=== PATIENT | male | born 1955 | race Two or more races ===

== ENCOUNTER 2019-06-11 15:07 | Inpatient (IN) | payer OTHER ==
[~2019-06-11] VITALS: Ht 172.7 cm; Wt 77.1 kg
[2019-06-11] VITALS (12 sets, daily range): BP systolic 126–160; BP diastolic 57–125
[2019-06-11] MEDS ORDERED: NITROPRUSSIDE 50 MG in DEXT 5% WATER 250 ML IV SCH (16:11)
[2019-06-11] MEDS ORDERED: LEVETIRACETAM 1000MG/100ML 100 ML IV ONE (16:15)
[2019-06-11] MEDS ORDERED: DEXAMETHASONE 10 MG/ML VIAL IV ONE (16:15)
[2019-06-11 16:22] LABS: BASOPHILS % 0.8 % (0.0-2.0); CHLORIDE 100 mEq/L (98-107); EOSINOPHILS % 1.8 % (0.0-5.0); HEMATOCRIT. 46.6 % (42.0-52.0); HEMOGLOBIN. 16.3 g/dL (14.0-18.0); LYMPHOCYTES % 25.1 % (20.0-50.0); MEAN CORPUSCULAR HEMOGLOBIN 35.3 pg (28.0-32.0); MEAN CORPUSCULAR VOLUME 100.9 fL (80.0-94.0); MEAN PLATELET VOLUME 8.5 fl (7.4-10.4); MONOCYTES % 7.2 % (2.0-8.0); NEUTROPHILS % 65.1 % (40.0-76.0); PLATELET 265 x1000/uL (130-400); RED BLOOD CELL COUNT 4.62 mill/uL (4.7-6.1); RED CELL DISTRIBUTION WIDTH 12.5 % (11.6-14.6)
[2019-06-11 16:25] LABS: INR 0.9; PROTHROMBIN TIME 9.4 sec (9.6-11.0)
[2019-06-11 16:26] LABS: ETHANOL BLOOD < 10 mg/dL
[2019-06-11 16:29] LABS: LDL CHOLESTEROL 139 mg/dL (5-100)
[2019-06-11] MEDS ORDERED: DILTIAZEM HCL 5MG/ML 5ML VIAL IV ONE (16:30)
[2019-06-11] MEDS ORDERED: NICARDIPINE 50 MG in SODIUM CHLORIDE 0.9% 230 ML IV PRN (17:00)
[2019-06-11] MEDS ORDERED: NICARDIPINE 40MG/200ML PREMIX 200 ML IV SCH (17:15)
[2019-06-11] MEDS ORDERED: DEXTROSE 50% WATER 50ML SYRINGE IV PRN ×2 (17:30→21:09)
[2019-06-11] MEDS ORDERED: DEXT 5%/LACTATED RINGERS 1,000 ML IV SCH (17:45)
[2019-06-11] MEDS ORDERED: INSULIN LISPRO 100 UNITS/ML SUBCUT SCH (18:20)
[2019-06-11] MEDS ORDERED: BLOOD SUGAR DIAGNOSTIC STRIP TEST SCH (21:00)
[2019-06-11] MEDS: ATORVASTATIN CALCIUM 40MG TABLET PO SCH (21:00)
[2019-06-11] MEDS ORDERED: ONDANSETRON HCL 4MG/2ML INJ IV PRN (21:08)
[2019-06-11] MEDS ORDERED: DILTIAZEM HCL 5MG/ML 5ML VIAL IV PRN (21:08)
[2019-06-11] MEDS: BLOOD SUGAR DIAGNOSTIC STRIP TEST SCH (21:20)
[2019-06-11] MEDS ORDERED: NICARDIPINE 100 MG in SODIUM CHLORIDE 0.9% 60 ML IV PRN ×4 (21:30)
[2019-06-11] MEDS ORDERED: DILTIAZEM HCL 125 MG in DEXT 5% WATER 100 ML IV PRN (21:30)
[2019-06-11] MEDS: DEXAMETHASONE 4MG/ML 1ML VIAL IV SCH (21:31)
[2019-06-11] MEDS: LACTATED RINGERS 1,000 ML IV SCH (21:31)
[2019-06-11] MEDS: INSULIN LISPRO 100 UNITS/ML SUBCUT SCH (21:33)
[2019-06-11] MEDS: LEVETIRACETAM 500 MG in SODIUM CHLORIDE 0.9% 100 ML IV SCH (22:20)
[2019-06-11] MEDS: DILTIAZEM HCL 125 MG in DEXT 5% WATER 100 ML IV PRN (22:22)
[2019-06-11] MEDS: INSULIN GLARGINE UD 100 UNITS/ML SYR SUBCUT SCH (22:23)
[2019-06-12] VITALS (106 sets, daily range): BP systolic 100–191; BP diastolic 40–141
[2019-06-12] MEDS ORDERED: IOHEXOL-350 100 ML BOTTLE ONE (00:39)
[2019-06-12] MEDS: DEXAMETHASONE 4MG/ML 1ML VIAL IV SCH ×4 (03:58→21:33)
[2019-06-12 05:32] LABS: HEMATOCRIT. 43.2 % (42.0-52.0); HEMOGLOBIN. 15.2 g/dL (14.0-18.0); MEAN CORPUSCULAR HEMOGLOBIN 35.2 pg (28.0-32.0); MEAN CORPUSCULAR VOLUME 100.2 fL (80.0-94.0); MEAN PLATELET VOLUME 8.1 fl (7.4-10.4); PLATELET 273 x1000/uL (130-400); RED BLOOD CELL COUNT 4.31 mill/uL (4.7-6.1); RED CELL DISTRIBUTION WIDTH 12.3 % (11.6-14.6)
[2019-06-12 05:37] LABS: CHLORIDE 101 mEq/L (98-107)
[2019-06-12] MEDS: BLOOD SUGAR DIAGNOSTIC STRIP TEST SCH ×4 (06:37→21:00)
[2019-06-12] MEDS: INSULIN LISPRO 100 UNITS/ML SUBCUT SCH ×4 (06:42→23:04)
[2019-06-12 07:24] LABS: PLATELET ESTIMATE NORMAL
[2019-06-12] MEDS: MORPHINE SULFATE 2 MG/ML CPJ (NOT FOR IM USE) IV PRN ×2 (08:02→09:20)
[2019-06-12] MEDS: PANTOPRAZOLE SODIUM 40 MG/VIAL IV SCH (09:15)
[2019-06-12] MEDS: LEVETIRACETAM 500 MG in SODIUM CHLORIDE 0.9% 100 ML IV SCH (09:15)
[2019-06-12] MEDS: MORPHINE SULFATE 4 MG/ML CPJ (NOT FOR IM USE) IV PRN ×6 (10:16→22:34)
[2019-06-12] MEDS: INSULIN GLARGINE UD 100 UNITS/ML SYR SUBCUT SCH (10:21)
[2019-06-12] MEDS ORDERED: IPRATROPIUM BROMIDE (0.02%) 0.5MG/2.5ML NEB HHN PRN (11:00)
[2019-06-12] MEDS ORDERED: FOLIC ACID 1 MG, THIAMINE HCL 100 MG, MVI, ADULT NO.1 10 ML in DEXTROSE 5% WATER 1,000 ML IV NR ×4 (11:00)
[2019-06-12] MEDS: DILTIAZEM HCL 125 MG in DEXT 5% WATER 100 ML IV PRN ×2 (11:51→23:31)
[2019-06-12] MEDS: AMPICILLIN SOD/SULBACTAM NA 3 G in SODIUM CHLORIDE 0.9% 100 ML IV SCH ×2 (12:52→18:22)
[2019-06-12 13:02] LABS: PHOSPHORUS 3.5 mg/dL (2.5-4.9)
[2019-06-12 13:04] LABS: CLARITY URINE CLEAR (CLEAR); COLOR URINE YELLOW (YELLOW); KETONES URINE 1+ (NEGATIVE); LEUKOCYTE ESTERASE URINE NEGATIVE (NEGATIVE); NITRITE URINE NEGATIVE (NEGATIVE); OCCULT BLOOD URINE NEGATIVE (NEGATIVE); PROTEIN URINE 2+ (NEGATIVE); SPECIFIC GRAVITY URINE 1.052 (1.005-1.030); UROBILINOGEN URINE 0.2 E.U./dL (0.2-1.0)
[2019-06-12 13:18] LABS: *AMPHETAMINES SCREEN URINE NEGATIVE (NEGATIVE); *BARBITURATES SCREEN URINE NEGATIVE (NEGATIVE); *BENZODIAZEPINES SCREEN URINE NEGATIVE (NEGATIVE); *COCAINE SCREEN URINE NEGATIVE (NEGATIVE); METHADONE URINE SCREEN NEGATIVE (NEGATIVE)
[2019-06-12 13:19] LABS: CANNABINOID URINE SCREEN PRESUMTIVE POSITIVE (NEGATIVE); OPIATES URINE SCREEN PRESUMTIVE POSITIVE (NEGATIVE); PHENCYCLIDINE URINE SCREEN NEGATIVE (NEGATIVE)
[2019-06-12] MEDS: CHLORDIAZEPOXIDE 25MG CAPSULE PO SCH ×2 (14:00→22:00)
[2019-06-12] MEDS: LACTATED RINGERS 1,000 ML IV SCH (16:59)
[2019-06-12] MEDS: ATORVASTATIN CALCIUM 40MG TABLET PO SCH ×2 (21:00→21:33)
[2019-06-13] VITALS (81 sets, daily range): BP systolic 89–180; BP diastolic 33–148
[2019-06-13] MEDS ORDERED: INSULIN GLARGINE UD 100 UNITS/ML SYR SUBCUT SCH
[2019-06-13] MEDS: LEVETIRACETAM 500MG in SODIUM CHLORIDE 0.9% 100ML IV SCH ×3 (01:10→20:51)
[2019-06-13] MEDS: AMPICILLIN SOD/SULBACTAM NA 3 G in SODIUM CHLORIDE 0.9% 100 ML IV SCH ×4 (01:10→18:04)
[2019-06-13] MEDS: DEXAMETHASONE 4MG/ML 1ML VIAL IV SCH ×4 (04:05→20:52)
[2019-06-13] MEDS: CHLORDIAZEPOXIDE 25MG CAPSULE PO SCH ×3 (06:00→21:59)
[2019-06-13 06:03] LABS: HEMATOCRIT. 40.7 % (42.0-52.0); HEMOGLOBIN. 14.1 g/dL (14.0-18.0); MEAN CORPUSCULAR HEMOGLOBIN 35.3 pg (28.0-32.0); MEAN CORPUSCULAR VOLUME 101.6 fL (80.0-94.0); MEAN PLATELET VOLUME 7.6 fl (7.4-10.4); PLATELET 236 x1000/uL (130-400); RED CELL DISTRIBUTION WIDTH 12.8 % (11.6-14.6)
[2019-06-13 06:08] LABS: CHLORIDE 107 mEq/L (98-107)
[2019-06-13] MEDS: LACTATED RINGERS 1,000 ML IV SCH (06:22)
[2019-06-13] MEDS: BLOOD SUGAR DIAGNOSTIC STRIP TEST SCH ×4 (06:23→21:18)
[2019-06-13] MEDS: INSULIN LISPRO 100 UNITS/ML SUBCUT SCH ×4 (06:56→21:35)
[2019-06-13 07:54] LABS: PLATELET ESTIMATE NORMAL
[2019-06-13] MEDS: PANTOPRAZOLE SODIUM 40 MG/VIAL IV SCH (08:32)
[2019-06-13 09:01] LABS: BG BASE EXCESS -0.6 mmol/L (-2.0-2.0); BG CARBOXYHEMOGLOBIN 1.1 % (0.5-1.5); BG DEOXYHEMOGLOBIN 6.1 % (0.0-5.0); BG FRACTION INSPIRED OXYGEN 21; BG HCO3 ACT 22.9 mmol/L (22.0-26.0); BG METHEMOGLOBIN 0.3 % (0.0-1.5); BG OXYGEN SATURATION 93.8 % (92.0-98.5); BG OXYHEMOGLOBIN 92.5 % (94.0-97.0); BG PCO2 34.8 mmHg (35.0-45.0); BG PH 7.436 (7.350-7.450); BG PO2 66.5 mmHg (75.0-100.0); BG SAMPLE SITE RIGHT RADIAL; BG VENT MODE ROOM AIR
[2019-06-13] MEDS: INSULIN GLARGINE UD 100 UNITS/ML SYR SUBCUT SCH ×2 (10:55→22:17)
[2019-06-13] MEDS: DILTIAZEM HCL 30MG TABLET PO SCH ×2 (15:13→21:57)
[2019-06-13] MEDS ORDERED: DILTIAZEM HCL 30MG TABLET PO SCH (18:00)
[2019-06-13] MEDS: ATORVASTATIN CALCIUM 40MG TABLET PO SCH (20:52)
[2019-06-14] VITALS (46 sets, daily range): BP systolic 103–155; BP diastolic 62–112
[2019-06-14] MEDS: AMPICILLIN SOD/SULBACTAM NA 3 G in SODIUM CHLORIDE 0.9% 100 ML IV SCH ×4 (00:34→18:35)
[2019-06-14] MEDS: DEXAMETHASONE 4MG/ML 1ML VIAL IV SCH ×4 (03:31→20:57)
[2019-06-14 05:13] LABS: HEMATOCRIT. 40.1 % (42.0-52.0); HEMOGLOBIN. 13.8 g/dL (14.0-18.0); MEAN CORPUSCULAR HEMOGLOBIN 35.1 pg (28.0-32.0); MEAN CORPUSCULAR VOLUME 101.7 fL (80.0-94.0); MEAN PLATELET VOLUME 7.7 fl (7.4-10.4); PLATELET 201 x1000/uL (130-400); RED BLOOD CELL COUNT 3.94 mill/uL (4.7-6.1); RED CELL DISTRIBUTION WIDTH 12.6 % (11.6-14.6)
[2019-06-14 05:18] LABS: CHLORIDE 106 mEq/L (98-107)
[2019-06-14] MEDS: LACTATED RINGERS 1,000 ML IV SCH ×2 (05:39→17:19)
[2019-06-14] MEDS: CHLORDIAZEPOXIDE 25MG CAPSULE PO SCH ×3 (06:30→20:57)
[2019-06-14] MEDS: DILTIAZEM HCL 30MG TABLET PO SCH ×3 (06:31→20:57)
[2019-06-14] MEDS: INSULIN LISPRO 100 UNITS/ML SUBCUT SCH ×4 (06:32→20:58)
[2019-06-14] MEDS: BLOOD SUGAR DIAGNOSTIC STRIP TEST SCH ×4 (06:32→20:35)
[2019-06-14 07:57] LABS: PLATELET ESTIMATE NORMAL
[2019-06-14] MEDS: PANTOPRAZOLE SODIUM 40 MG/VIAL IV SCH (09:17)
[2019-06-14] MEDS: LEVETIRACETAM 500MG in SODIUM CHLORIDE 0.9% 100ML IV SCH ×2 (09:17→20:57)
[2019-06-14] MEDS: INSULIN GLARGINE UD 100 UNITS/ML SYR SUBCUT SCH ×2 (11:37→20:59)
[2019-06-14] MEDS: ATORVASTATIN CALCIUM 40MG TABLET PO SCH (20:57)
[2019-06-15] VITALS (39 sets, daily range): BP systolic 118–180; BP diastolic 57–103
[2019-06-15] MEDS: AMPICILLIN SOD/SULBACTAM NA 3 G in SODIUM CHLORIDE 0.9% 100 ML IV SCH ×4 (00:01→20:00)
[2019-06-15] MEDS: DEXAMETHASONE 4MG/ML 1ML VIAL IV SCH ×4 (03:43→22:05)
[2019-06-15 05:03] LABS: CHLORIDE 104 mEq/L (98-107)
[2019-06-15 05:04] LABS: HEMATOCRIT. 41.1 % (42.0-52.0); HEMOGLOBIN. 14.2 g/dL (14.0-18.0); MEAN CORPUSCULAR HEMOGLOBIN 35.1 pg (28.0-32.0); MEAN CORPUSCULAR VOLUME 101.5 fL (80.0-94.0); PLATELET 192 x1000/uL (130-400); RED BLOOD CELL COUNT 4.05 mill/uL (4.7-6.1); RED CELL DISTRIBUTION WIDTH 12.2 % (11.6-14.6)
[2019-06-15] MEDS: DILTIAZEM HCL 30MG TABLET PO SCH ×3 (06:15→22:04)
[2019-06-15] MEDS: CHLORDIAZEPOXIDE 25MG CAPSULE PO SCH ×3 (06:15→22:04)
[2019-06-15] MEDS: BLOOD SUGAR DIAGNOSTIC STRIP TEST SCH ×4 (06:32→21:51)
[2019-06-15] MEDS: INSULIN LISPRO 100 UNITS/ML SUBCUT SCH ×4 (06:32→22:14)
[2019-06-15] MEDS: PANTOPRAZOLE SODIUM 40 MG/VIAL IV SCH (09:34)
[2019-06-15] MEDS: LEVETIRACETAM 500MG in SODIUM CHLORIDE 0.9% 100ML IV SCH ×2 (09:35→23:10)
[2019-06-15] MEDS: INSULIN GLARGINE UD 100 UNITS/ML SYR SUBCUT SCH ×2 (09:37→22:14)
[2019-06-15] MEDS: LACTATED RINGERS 1,000 ML IV SCH (09:47)
[2019-06-15 10:01] LABS: PLATELET ESTIMATE NORMAL
[2019-06-15] MEDS ORDERED: PANTOPRAZOLE SODIUM 40 MG/VIAL IV SCH (14:00)
[2019-06-15] MEDS: ATORVASTATIN CALCIUM 40MG TABLET PO SCH (22:05)
[2019-06-16] VITALS: BP 145/81
[2019-06-16] MEDS: AMPICILLIN SOD/SULBACTAM NA 3 G in SODIUM CHLORIDE 0.9% 100 ML IV SCH ×4 (00:53→20:30)
[2019-06-16] MEDS: LACTATED RINGERS 1,000 ML IV SCH ×2 (00:53→20:31)
[2019-06-16] MEDS: DEXAMETHASONE 4MG/ML 1ML VIAL IV SCH ×4 (03:42→21:47)
[2019-06-16 04:00] VITALS: BP 138/79
[2019-06-16] MEDS: CHLORDIAZEPOXIDE 25MG CAPSULE PO SCH ×3 (05:23→21:48)
[2019-06-16] MEDS: DILTIAZEM HCL 30MG TABLET PO SCH ×3 (05:23→21:48)
[2019-06-16] MEDS: INSULIN LISPRO 100 UNITS/ML SUBCUT SCH ×4 (06:40→21:59)
[2019-06-16] MEDS: BLOOD SUGAR DIAGNOSTIC STRIP TEST SCH ×4 (06:40→20:41)
[2019-06-16 06:48] LABS: HEMATOCRIT. 42.9 % (42.0-52.0); HEMOGLOBIN. 15.2 g/dL (14.0-18.0); MEAN CORPUSCULAR HEMOGLOBIN 35.5 pg (28.0-32.0); MEAN CORPUSCULAR VOLUME 100.5 fL (80.0-94.0); MEAN PLATELET VOLUME 8.2 fl (7.4-10.4); PLATELET 227 x1000/uL (130-400); RED BLOOD CELL COUNT 4.27 mill/uL (4.7-6.1); RED CELL DISTRIBUTION WIDTH 11.9 % (11.6-14.6)
[2019-06-16 08:00] VITALS: BP 160/95
[2019-06-16 09:13] LABS: CHLORIDE 104 mEq/L (98-107); PLATELET ESTIMATE NORMAL
[2019-06-16] MEDS: PANTOPRAZOLE SODIUM 40 MG/VIAL IV SCH (10:30)
[2019-06-16] MEDS: LEVETIRACETAM 500MG in SODIUM CHLORIDE 0.9% 100ML IV SCH ×2 (10:30→23:02)
[2019-06-16 12:00] VITALS: BP 147/91
[2019-06-16] MEDS: INSULIN GLARGINE UD 100 UNITS/ML SYR SUBCUT SCH ×2 (12:41→21:59)
[2019-06-16 16:00] VITALS: BP 143/103
[2019-06-16 20:00] VITALS: BP 140/95
[2019-06-16] MEDS: ATORVASTATIN CALCIUM 40MG TABLET PO SCH (21:47)
[2019-06-16] MEDS: FAMOTIDINE 20MG/2ML VIAL IV SCH (21:47)
[2019-06-17] VITALS: BP 154/98
[2019-06-17] MEDS: AMPICILLIN SOD/SULBACTAM NA 3 G in SODIUM CHLORIDE 0.9% 100 ML IV SCH ×4 (00:54→18:12)
[2019-06-17] MEDS: DEXAMETHASONE 4MG/ML 1ML VIAL IV SCH ×3 (02:47→14:46)
[2019-06-17 04:00] VITALS: BP 136/89
[2019-06-17] MEDS: BLOOD SUGAR DIAGNOSTIC STRIP TEST SCH ×4 (06:01→20:41)
[2019-06-17] MEDS: INSULIN LISPRO 100 UNITS/ML SUBCUT SCH ×4 (06:02→22:22)
[2019-06-17] MEDS: CHLORDIAZEPOXIDE 25MG CAPSULE PO SCH ×2 (06:09→13:25)
[2019-06-17] MEDS: DILTIAZEM HCL 30MG TABLET PO SCH ×3 (06:09→21:20)
[2019-06-17 07:29] LABS: BASOPHILS % 0.1 % (0.0-2.0); HEMATOCRIT. 46.5 % (42.0-52.0); HEMOGLOBIN. 15.9 g/dL (14.0-18.0); LYMPHOCYTES % 8.1 % (20.0-50.0); MEAN CORPUSCULAR HEMOGLOBIN 34.5 pg (28.0-32.0); MEAN CORPUSCULAR VOLUME 100.7 fL (80.0-94.0); MEAN PLATELET VOLUME 8.1 fl (7.4-10.4); MONOCYTES % 5.1 % (2.0-8.0); NEUTROPHILS % 86.7 % (40.0-76.0); PLATELET 231 x1000/uL (130-400); RED BLOOD CELL COUNT 4.62 mill/uL (4.7-6.1); RED CELL DISTRIBUTION WIDTH 12.2 % (11.6-14.6)
[2019-06-17 07:33] LABS: CHLORIDE 104 mEq/L (98-107)
[2019-06-17] MEDS: LEVETIRACETAM 500MG in SODIUM CHLORIDE 0.9% 100ML IV SCH ×2 (09:28→21:22)
[2019-06-17] MEDS: FAMOTIDINE 20MG/2ML VIAL IV SCH ×2 (09:28→21:21)
[2019-06-17] MEDS: LACTATED RINGERS 1,000 ML IV SCH (09:37)
[2019-06-17] MEDS: INSULIN GLARGINE UD 100 UNITS/ML SYR SUBCUT SCH ×2 (10:00→22:21)
[2019-06-17 12:00] VITALS: BP 147/91
[2019-06-17 16:00] VITALS: BP 156/97
[2019-06-17 20:00] VITALS: BP 156/96
[2019-06-17] MEDS: ATORVASTATIN CALCIUM 40MG TABLET PO SCH (21:21)
[2019-06-18] VITALS: BP 127/76
[2019-06-18] MEDS: AMPICILLIN SOD/SULBACTAM NA 3 G in SODIUM CHLORIDE 0.9% 100 ML IV SCH ×3 (01:01→12:34)
[2019-06-18 04:00] VITALS: BP 147/98
[2019-06-18] MEDS: DILTIAZEM HCL 30MG TABLET PO SCH ×3 (06:26→21:17)
[2019-06-18] MEDS: BLOOD SUGAR DIAGNOSTIC STRIP TEST SCH ×4 (06:26→21:32)
[2019-06-18] MEDS: INSULIN LISPRO 100 UNITS/ML SUBCUT SCH ×4 (06:26→21:00)
[2019-06-18 08:00] VITALS: BP 125/86
[2019-06-18] MEDS: FAMOTIDINE 20MG/2ML VIAL IV SCH (08:06)
[2019-06-18] MEDS: LEVETIRACETAM 500MG in SODIUM CHLORIDE 0.9% 100ML IV SCH (08:06)
[2019-06-18] MEDS: INSULIN GLARGINE UD 100 UNITS/ML SYR SUBCUT SCH ×2 (11:24→22:41)
[2019-06-18 12:00] VITALS: BP 142/97
[2019-06-18 16:00] VITALS: BP 125/81
[2019-06-18 20:00] VITALS: BP 122/77
[2019-06-18] MEDS: FAMOTIDINE 20MG TABLET PO SCH (21:17)
[2019-06-18] MEDS: ATORVASTATIN CALCIUM 40MG TABLET PO SCH (21:18)
[2019-06-18] MEDS: LEVETIRACETAM 500MG TABLET PO SCH (21:18)
[2019-06-19] VITALS: BP 102/64
[2019-06-19 04:00] VITALS: BP 148/97
[2019-06-19] MEDS: INSULIN LISPRO 100 UNITS/ML SUBCUT SCH (06:24)
[2019-06-19] MEDS: BLOOD SUGAR DIAGNOSTIC STRIP TEST SCH (06:24)
[2019-06-19] MEDS: DILTIAZEM HCL 30MG TABLET PO SCH (06:24)
[2019-06-19 08:00] VITALS: BP 104/64
[2019-06-19] MEDS: LEVETIRACETAM 500MG TABLET PO SCH (09:32)
[2019-06-19] MEDS: FAMOTIDINE 20MG TABLET PO SCH (09:32)
[2019-06-19] MEDS: INSULIN GLARGINE UD 100 UNITS/ML SYR SUBCUT SCH (09:50)
[2019-06-19 10:00] VITALS: BP 104/64
== END 2019-06-19 10:55 | disposition short-term general hospital (02) | DRG 85 ==
LOC: ER 15:07 → EDBD 15:07 → MICUNO 16:29 → EDBEDREQSVC 16:32 → EDBEDREQTM 16:32 → EDBEDREQ 16:32 → ENRESERV 19:55 → UNDOADMIN 20:40 → MICUNO 20:40 → 8WST 06-15 17:55
PROVIDERS: ADMIT Internal Medicine; ATTEND Internal Medicine
DX: S06.5X0A Traumatic subdural hemorrhage without loss of consciousness, initial encounter (principal); J96.00 Acute respiratory failure, unspecified whether with hypoxia or hypercapnia; I16.1 Hypertensive emergency; E87.1 Hypo-osmolality and hyponatremia; J98.11 Atelectasis; I48.20 Chronic atrial fibrillation, unspecified; F10.231 Alcohol dependence with withdrawal delirium; G93.40 Encephalopathy, unspecified; E78.5 Hyperlipidemia, unspecified; I10 Essential (primary) hypertension; E11.9 Type 2 diabetes mellitus without complications; E86.1 Hypovolemia; F12.90 Cannabis use, unspecified, uncomplicated; R29.6 Repeated falls; W18.39XA Other fall on same level, initial encounter; S61.512A Laceration without foreign body of left wrist, initial encounter; S61.511A Laceration without foreign body of right wrist, initial encounter; X58.XXXA Exposure to other specified factors, initial encounter; Y92.230 Patient room in hospital as the place of occurrence of the external cause; Y93.89 Activity, other specified; Z78.1 Physical restraint status; Y99.8 Other external cause status; Y92.89 Other specified places as the place of occurrence of the external cause
CPT/HCPCS: 36415; 36600; 70496; 71045; 80048; 80305; 80320; 81003; 82140; 82375; 82805; 82962; 83721; 83735; 84100; 84134; 84443; 84484; 86850; 86900; 92610; 93005; 93306; 93970; 97110; 97116; 97162; 97166; 99291; C9113; J0295; J1100; J1815; J1953; J2270; J3411; J3490; J7040; J7050; J7060; J7070; Q9967; A4315; G0480

== ENCOUNTER 2022-10-21 23:56 | Inpatient (IN) | payer MEDICARE, MEDICAID ==
[~2022-10-21] VITALS: Ht 175.3 cm; Wt 89.8 kg
[2022-10-21 23:55] VITALS: BP 138/87
[2022-10-22] MEDS ORDERED: CLONIDINE 0.1MG TABLET PO PRN (03:00)
[2022-10-22] MEDS ORDERED: ONDANSETRON HCL 4MG/2ML INJ IV PRN (03:00)
[2022-10-22] MEDS ORDERED: ACETAMINOPHEN 325MG TABLET PO PRN ×3 (03:00→07:45)
[2022-10-22] MEDS ORDERED: LORAZEPAM 2MG/ML CPJ IV PRN (03:00)
[2022-10-22] MEDS: CEFTRIAXONE 1,000 MG in DEXTROSE 5% WATER 50 ML IV SCH (06:11)
[2022-10-22 07:06] LABS: BASOPHILS % 0.7 % (0.0-2.0); EOSINOPHILS % 6.1 % (0.0-5.0); HEMATOCRIT. 38.1 % (42.0-52.0); LYMPHOCYTES % 23.1 % (20.0-50.0); MEAN CORPUSCULAR HEMOGLOBIN 31.4 pg (28.0-32.0); MEAN CORPUSCULAR VOLUME 92.1 fL (80.0-94.0); MEAN PLATELET VOLUME 6.9 fl (7.4-10.4); MONOCYTES % 9.6 % (2.0-8.0); NEUTROPHILS % 60.5 % (40.0-76.0); PLATELET 509 x1000/uL (130-400); RED BLOOD CELL COUNT 4.13 mill/uL (4.7-6.1); RED CELL DISTRIBUTION WIDTH 13.4 % (11.6-14.6)
[2022-10-22] MEDS ORDERED: DEXTROSE 50% WATER 50ML SYRINGE IV PRN ×2 (07:45)
[2022-10-22] MEDS ORDERED: HYDROCODONE/ACETAMINOPHEN 5/325MG TABLET PO PRN (07:45)
[2022-10-22] MEDS ORDERED: GLUCAGON,HUMAN RECOMBINANT 1MG/VIAL IM PRN (07:45)
[2022-10-22 07:46] LABS: CHLORIDE 103 mEq/L (98-107)
[2022-10-22 08:00] VITALS: BP 157/100
[2022-10-22] MEDS: BLOOD SUGAR DIAGNOSTIC STRIP TEST SCH ×4 (08:00→21:00)
[2022-10-22] MEDS ORDERED: NALOXONE HCL 0.4MG/ML VIAL IV PRN (08:00)
[2022-10-22] MEDS: APIXABAN 5 MG TABLET PO SCH ×2 (08:50→16:42)
[2022-10-22] MEDS: METOPROLOL TARTRATE 25MG TABLET PO SCH ×2 (08:50→21:36)
[2022-10-22] MEDS: INSULIN LISPRO 100 UNITS/ML SUBCUT SCH ×4 (08:55→21:39)
[2022-10-22] MEDS ORDERED: CEFTRIAXONE 1 G PREMIX 50 ML IV SCH (09:00)
[2022-10-22] MEDS ORDERED: APIXABAN 2.5 MG TABLET PO SCH ×2 (09:00)
[2022-10-22 20:00] VITALS: BP 150/99
[2022-10-23] MEDS: CEFTRIAXONE 1,000 MG in DEXTROSE 5% WATER 50 ML IV SCH (05:38)
[2022-10-23] MEDS: BLOOD SUGAR DIAGNOSTIC STRIP TEST SCH ×4 (05:39→21:42)
[2022-10-23] MEDS: INSULIN LISPRO 100 UNITS/ML SUBCUT SCH ×4 (06:45→21:40)
[2022-10-23 07:27] LABS: BASOPHILS % 0.7 % (0.0-2.0); EOSINOPHILS % 5.7 % (0.0-5.0); HEMOGLOBIN. 13.1 g/dL (14.0-18.0); LYMPHOCYTES % 27.9 % (20.0-50.0); MEAN CORPUSCULAR HEMOGLOBIN 31.6 pg (28.0-32.0); MEAN CORPUSCULAR VOLUME 91.8 fL (80.0-94.0); NEUTROPHILS % 57.7 % (40.0-76.0); PLATELET 493 x1000/uL (130-400); RED BLOOD CELL COUNT 4.14 mill/uL (4.7-6.1); RED CELL DISTRIBUTION WIDTH 13.4 % (11.6-14.6)
[2022-10-23 07:53] LABS: FERRITIN 97 ng/mL (22-322); PROSTRATE SPECIFIC AG TOTAL 0.19 ng/mL (0.0-4.0)
[2022-10-23 08:00] VITALS: BP 150/89
[2022-10-23 08:07] LABS: FOLIC ACID (FOLATE) SERUM >20 ng/mL ng/mL (>5.38); VITAMIN B12 SERUM 959 pg/mL (211-911)
[2022-10-23 08:19] LABS: CHLORIDE 102 mEq/L (98-107)
[2022-10-23] MEDS: APIXABAN 5 MG TABLET PO SCH ×2 (08:31→16:07)
[2022-10-23] MEDS: METOPROLOL TARTRATE 25MG TABLET PO SCH ×2 (08:32→21:00)
[2022-10-23 08:38] LABS: HDL CHOLESTEROL 37 mg/dL (40-59); LDL CHOLESTEROL 94 mg/dL (5-100); TOTAL IRON BINDING CAPACITY 266 ug/dL (250-450)
[2022-10-23 20:00] VITALS: BP 103/55
[2022-10-23] MEDS: TRAZODONE HCL 50MG TABLET PO SCH (21:30)
[2022-10-23] MEDS: ATORVASTATIN CALCIUM 10MG TABLET PO SCH (21:30)
[2022-10-24] MEDS: CEFTRIAXONE 1,000 MG in DEXTROSE 5% WATER 50 ML IV SCH (05:39)
[2022-10-24 08:00] VITALS: BP 164/98
[2022-10-24] MEDS: APIXABAN 5 MG TABLET PO SCH ×2 (08:16→16:53)
[2022-10-24] MEDS: FERROUS SULFATE 325MG TABLET PO SCH ×3 (08:16→16:53)
[2022-10-24] MEDS: ASCORBIC ACID 500 MG TABLET PO SCH (08:16)
[2022-10-24] MEDS: METOPROLOL TARTRATE 25MG TABLET PO SCH ×2 (08:17→20:27)
[2022-10-24] MEDS: INSULIN LISPRO 100 UNITS/ML SUBCUT SCH ×4 (08:19→20:33)
[2022-10-24 08:31] LABS: BASOPHILS % 0.9 % (0.0-2.0); EOSINOPHILS % 7.6 % (0.0-5.0); HEMATOCRIT. 37.7 % (42.0-52.0); HEMOGLOBIN. 12.6 g/dL (14.0-18.0); LYMPHOCYTES % 29.2 % (20.0-50.0); MEAN CORPUSCULAR HEMOGLOBIN 30.8 pg (28.0-32.0); MEAN CORPUSCULAR VOLUME 91.8 fL (80.0-94.0); MEAN PLATELET VOLUME 6.8 fl (7.4-10.4); MONOCYTES % 7.5 % (2.0-8.0); NEUTROPHILS % 54.8 % (40.0-76.0); PLATELET 474 x1000/uL (130-400); RED BLOOD CELL COUNT 4.11 mill/uL (4.7-6.1); RED CELL DISTRIBUTION WIDTH 13.6 % (11.6-14.6)
[2022-10-24] MEDS: BLOOD SUGAR DIAGNOSTIC STRIP TEST SCH ×3 (11:15→20:33)
[2022-10-24 20:00] VITALS: BP 110/64
[2022-10-24] MEDS: ATORVASTATIN CALCIUM 10MG TABLET PO SCH (20:25)
[2022-10-24] MEDS: TRAZODONE HCL 50MG TABLET PO SCH (20:25)
[2022-10-24 22:03] LABS: CHLORIDE 100 mEq/L (98-107)
[2022-10-25 01:15] LABS: CLARITY URINE CLEAR (CLEAR); COLOR URINE YELLOW (YELLOW); KETONES URINE NEGATIVE (NEGATIVE); LEUKOCYTE ESTERASE URINE NEGATIVE (NEGATIVE); NITRITE URINE NEGATIVE (NEGATIVE); OCCULT BLOOD URINE NEGATIVE (NEGATIVE); PH URINE 5.5 (4.5-8.0); PROTEIN URINE NEGATIVE (NEGATIVE); SPECIFIC GRAVITY URINE 1.018 (1.005-1.030); UROBILINOGEN URINE 0.2 E.U./dL (0.2-1.0)
[2022-10-25] MEDS: CEFTRIAXONE 1,000 MG in DEXTROSE 5% WATER 50 ML IV SCH (05:32)
[2022-10-25] MEDS: INSULIN LISPRO 100 UNITS/ML SUBCUT SCH ×4 (06:17→21:38)
[2022-10-25] MEDS: BLOOD SUGAR DIAGNOSTIC STRIP TEST SCH ×4 (06:18→21:16)
[2022-10-25 07:57] VITALS: BP 108/71
[2022-10-25] MEDS: APIXABAN 5 MG TABLET PO SCH ×2 (08:10→16:47)
[2022-10-25] MEDS: FERROUS SULFATE 325MG TABLET PO SCH ×2 (08:10→12:04)
[2022-10-25] MEDS: METOPROLOL TARTRATE 25MG TABLET PO SCH ×2 (08:11→21:34)
[2022-10-25] MEDS: ASCORBIC ACID 500 MG TABLET PO SCH (08:11)
[2022-10-25] MEDS ORDERED: LACTULOSE 20G/30ML UDC PO PRN (16:45)
[2022-10-25] MEDS ORDERED: SENNOSIDES/DOCUSATE SOD 8.6/50MG TABLET PO PRN (16:45)
[2022-10-25] MEDS: IRON SUCROSE COMPLEX 100 MG/5 ML ML IV SCH (16:47)
[2022-10-25 19:49] VITALS: BP 125/77
[2022-10-25] MEDS: ATORVASTATIN CALCIUM 10MG TABLET PO SCH (21:32)
[2022-10-25] MEDS: TRAZODONE HCL 50MG TABLET PO SCH (21:32)
[2022-10-26] MEDS: BLOOD SUGAR DIAGNOSTIC STRIP TEST SCH ×4 (06:59→21:27)
[2022-10-26 07:52] VITALS: BP 126/83
[2022-10-26] MEDS: INSULIN LISPRO 100 UNITS/ML SUBCUT SCH ×4 (09:00→21:35)
[2022-10-26] MEDS: ASCORBIC ACID 500 MG TABLET PO SCH (09:50)
[2022-10-26] MEDS: METOPROLOL TARTRATE 25MG TABLET PO SCH ×2 (09:50→21:28)
[2022-10-26] MEDS: APIXABAN 5 MG TABLET PO SCH (09:50)
[2022-10-26 17:04] LABS: INR 1.1; PROTHROMBIN TIME 11.5 sec (9.6-11.0)
[2022-10-26] MEDS: IRON SUCROSE COMPLEX 100 MG/5 ML ML IV SCH (17:40)
[2022-10-26 20:00] VITALS: BP_SYST 122; BP_SYST 126; BP_DIAS 78; BP_DIAS 79
[2022-10-26] MEDS: ATORVASTATIN CALCIUM 10MG TABLET PO SCH (21:27)
[2022-10-26] MEDS: TRAZODONE HCL 50MG TABLET PO SCH (21:28)
[2022-10-26] MEDS: INSULIN GLARGINE 100 UNITS/ML SUBCUT SCH (21:34)
[2022-10-27] MEDS: BLOOD SUGAR DIAGNOSTIC STRIP TEST SCH ×4 (06:30→21:51)
[2022-10-27] MEDS: INSULIN LISPRO 100 UNITS/ML SUBCUT SCH ×3 (08:03→19:03)
[2022-10-27 08:30] VITALS: BP 141/99
[2022-10-27] MEDS: METOPROLOL TARTRATE 25MG TABLET PO SCH ×2 (08:32→22:50)
[2022-10-27] MEDS: APIXABAN 5 MG TABLET PO SCH ×2 (12:57→22:49)
[2022-10-27] MEDS: IRON SUCROSE COMPLEX 100 MG/5 ML ML IV SCH (15:54)
[2022-10-27 20:00] VITALS: BP 126/78
[2022-10-27] MEDS: ATORVASTATIN CALCIUM 10MG TABLET PO SCH (22:50)
[2022-10-27] MEDS: TRAZODONE HCL 50MG TABLET PO SCH (22:50)
[2022-10-27] MEDS: INSULIN GLARGINE 100 UNITS/ML SUBCUT SCH (22:54)
[2022-10-28] MEDS: BLOOD SUGAR DIAGNOSTIC STRIP TEST SCH ×3 (06:30→22:00)
[2022-10-28 06:57] LABS: BASOPHILS % 0.6 % (0.0-2.0); EOSINOPHILS % 2.9 % (0.0-5.0); HEMATOCRIT. 37.9 % (42.0-52.0); HEMOGLOBIN. 12.8 g/dL (14.0-18.0); LYMPHOCYTES % 25.2 % (20.0-50.0); MEAN CORPUSCULAR HEMOGLOBIN 31.1 pg (28.0-32.0); MEAN CORPUSCULAR VOLUME 92.4 fL (80.0-94.0); MEAN PLATELET VOLUME 7.4 fl (7.4-10.4); MONOCYTES % 8.6 % (2.0-8.0); NEUTROPHILS % 62.7 % (40.0-76.0); PLATELET 415 x1000/uL (130-400); RED CELL DISTRIBUTION WIDTH 13.7 % (11.6-14.6)
[2022-10-28] MEDS: INSULIN LISPRO 100 UNITS/ML SUBCUT SCH ×5 (07:00→17:00)
[2022-10-28 08:00] VITALS: BP 123/80
[2022-10-28 08:34] LABS: CHLORIDE 107 mEq/L (98-107); T4 FREE 1.26 ng/dL (0.76-1.46)
[2022-10-28] MEDS: METOPROLOL TARTRATE 25MG TABLET PO SCH ×2 (09:00→21:59)
[2022-10-28] MEDS: APIXABAN 5 MG TABLET PO SCH ×2 (09:00→22:00)
[2022-10-28] MEDS: IRON SUCROSE COMPLEX 100 MG/5 ML ML IV SCH (18:41)
[2022-10-28 20:12] VITALS: BP 140/86
[2022-10-28] MEDS: ATORVASTATIN CALCIUM 10MG TABLET PO SCH (21:59)
[2022-10-28] MEDS: TRAZODONE HCL 50MG TABLET PO SCH (22:00)
[2022-10-28] MEDS: INSULIN GLARGINE 100 UNITS/ML SUBCUT SCH (22:47)
[2022-10-29] MEDS: BLOOD SUGAR DIAGNOSTIC STRIP TEST SCH ×4 (06:30→21:34)
[2022-10-29] MEDS: INSULIN LISPRO 100 UNITS/ML SUBCUT SCH ×3 (07:00→17:00)
[2022-10-29 08:00] VITALS: BP 132/86
[2022-10-29] MEDS: APIXABAN 5 MG TABLET PO SCH ×2 (08:56→21:38)
[2022-10-29] MEDS: METOPROLOL TARTRATE 25MG TABLET PO SCH ×2 (08:57→21:38)
[2022-10-29 13:12] LABS: *CREATININE RANDOM URINE 109.4 mg/dL (Not Estab.); MICROALBUMIN RANDOM URINE 37.2 ug/mL (Not Estab.)
[2022-10-29] MEDS: IRON SUCROSE COMPLEX 100 MG/5 ML ML IV SCH (17:38)
[2022-10-29 20:00] VITALS: BP 124/74
[2022-10-29] MEDS: ATORVASTATIN CALCIUM 10MG TABLET PO SCH (21:38)
[2022-10-29] MEDS: TRAZODONE HCL 50MG TABLET PO SCH (21:38)
[2022-10-29] MEDS: INSULIN GLARGINE 100 UNITS/ML SUBCUT SCH (21:42)
[2022-10-30] MEDS: INSULIN LISPRO 100 UNITS/ML SUBCUT SCH ×6 (05:53→17:00)
[2022-10-30] MEDS: BLOOD SUGAR DIAGNOSTIC STRIP TEST SCH ×4 (06:32→21:16)
[2022-10-30 08:00] VITALS: BP 115/70
[2022-10-30] MEDS: APIXABAN 5 MG TABLET PO SCH ×2 (11:23→21:15)
[2022-10-30] MEDS: METOPROLOL TARTRATE 25MG TABLET PO SCH ×2 (11:23→21:16)
[2022-10-30] MEDS: IRON SUCROSE COMPLEX 100 MG/5 ML ML IV SCH (16:00)
[2022-10-30 16:43] LABS: BASOPHILS % 0.6 % (0.0-2.0); EOSINOPHILS % 1.9 % (0.0-5.0); HEMATOCRIT. 41.2 % (42.0-52.0); HEMOGLOBIN. 13.9 g/dL (14.0-18.0); LYMPHOCYTES % 22.5 % (20.0-50.0); MEAN CORPUSCULAR HEMOGLOBIN 31.4 pg (28.0-32.0); MEAN CORPUSCULAR VOLUME 93.1 fL (80.0-94.0); MONOCYTES % 9.3 % (2.0-8.0); NEUTROPHILS % 65.7 % (40.0-76.0); PLATELET 373 x1000/uL (130-400); RED BLOOD CELL COUNT 4.42 mill/uL (4.7-6.1); RED CELL DISTRIBUTION WIDTH 13.7 % (11.6-14.6)
[2022-10-30 16:56] LABS: CHLORIDE 106 mEq/L (98-107)
[2022-10-30 20:00] VITALS: BP 123/94
[2022-10-30] MEDS: TRAZODONE HCL 50MG TABLET PO SCH (21:15)
[2022-10-30] MEDS: ATORVASTATIN CALCIUM 10MG TABLET PO SCH (21:15)
[2022-10-30] MEDS: INSULIN GLARGINE 100 UNITS/ML SUBCUT SCH (21:29)
[2022-10-31] MEDS: BLOOD SUGAR DIAGNOSTIC STRIP TEST SCH ×4 (06:56→21:46)
[2022-10-31] MEDS: INSULIN LISPRO 100 UNITS/ML SUBCUT SCH ×6 (07:00→17:42)
[2022-10-31 07:59] LABS: EOSINOPHILS % 2.5 % (0.0-5.0); HEMOGLOBIN. 12.6 g/dL (14.0-18.0)
[2022-10-31 08:00] VITALS: BP 128/78
[2022-10-31 08:02] LABS: BASOPHILS % 0.6 % (0.0-2.0); LYMPHOCYTES % 32.6 % (20.0-50.0); MEAN CORPUSCULAR HEMOGLOBIN 31.5 pg (28.0-32.0); MEAN CORPUSCULAR VOLUME 92.7 fL (80.0-94.0); MEAN PLATELET VOLUME 7.1 fl (7.4-10.4); MONOCYTES % 7.6 % (2.0-8.0); NEUTROPHILS % 56.7 % (40.0-76.0); PLATELET 370 x1000/uL (130-400); RED BLOOD CELL COUNT 3.99 mill/uL (4.7-6.1); RED CELL DISTRIBUTION WIDTH 13.6 % (11.6-14.6)
[2022-10-31] MEDS: METOPROLOL TARTRATE 25MG TABLET PO SCH ×2 (08:19→21:46)
[2022-10-31] MEDS: APIXABAN 5 MG TABLET PO SCH ×2 (08:19→21:46)
[2022-10-31 10:53] LABS: CHLORIDE 108 mEq/L (98-107)
[2022-10-31] MEDS: IRON SUCROSE COMPLEX 100 MG/5 ML ML IV SCH (17:37)
[2022-10-31 20:00] VITALS: BP 159/84
[2022-10-31] MEDS: TRAZODONE HCL 50MG TABLET PO SCH (21:46)
[2022-10-31] MEDS: ATORVASTATIN CALCIUM 10MG TABLET PO SCH (21:46)
[2022-10-31] MEDS: INSULIN GLARGINE 100 UNITS/ML SUBCUT SCH (22:13)
[2022-11-01] MEDS: BLOOD SUGAR DIAGNOSTIC STRIP TEST SCH ×4 (05:38→21:00)
[2022-11-01 08:00] VITALS: BP 110/70
[2022-11-01] MEDS: METOPROLOL TARTRATE 25MG TABLET PO SCH ×2 (11:10→21:00)
[2022-11-01] MEDS: APIXABAN 5 MG TABLET PO SCH ×2 (11:11→21:00)
[2022-11-01] MEDS: INSULIN LISPRO 100 UNITS/ML SUBCUT SCH ×5 (13:00→17:00)
[2022-11-01] MEDS: IRON SUCROSE COMPLEX 100 MG/5 ML ML IV SCH (16:00)
[2022-11-01 20:00] VITALS: BP 137/83
[2022-11-01] MEDS: TRAZODONE HCL 50MG TABLET PO SCH (21:00)
[2022-11-01] MEDS: ATORVASTATIN CALCIUM 10MG TABLET PO SCH (21:00)
[2022-11-01] MEDS: INSULIN GLARGINE 100 UNITS/ML SUBCUT SCH (22:00)
[2022-11-02] MEDS: BLOOD SUGAR DIAGNOSTIC STRIP TEST SCH ×4 (06:30→21:00)
[2022-11-02] MEDS: INSULIN LISPRO 100 UNITS/ML SUBCUT SCH ×6 (06:47→17:24)
[2022-11-02 07:56] VITALS: BP 115/69
[2022-11-02] MEDS: APIXABAN 5 MG TABLET PO SCH ×2 (08:37→21:45)
[2022-11-02] MEDS: METOPROLOL TARTRATE 25MG TABLET PO SCH ×2 (08:37→21:45)
[2022-11-02] MEDS: IRON SUCROSE COMPLEX 100 MG in SODIUM CHLORIDE 0.9% 100 ML IV SCH (16:00)
[2022-11-02 20:02] VITALS: BP 134/57
[2022-11-02] MEDS: ATORVASTATIN CALCIUM 10MG TABLET PO SCH (21:45)
[2022-11-02] MEDS: TRAZODONE HCL 50MG TABLET PO SCH (21:45)
[2022-11-02] MEDS: INSULIN GLARGINE 100 UNITS/ML SUBCUT SCH (22:00)
[2022-11-03 06:18] LABS: CHLORIDE 108 mEq/L (98-107)
[2022-11-03 06:34] LABS: BASOPHILS % 0.6 % (0.0-2.0); HEMOGLOBIN. 13.6 g/dL (14.0-18.0); MEAN CORPUSCULAR HEMOGLOBIN 31.7 pg (28.0-32.0); MEAN CORPUSCULAR VOLUME 93.3 fL (80.0-94.0); MONOCYTES % 9.7 % (2.0-8.0); NEUTROPHILS % 62.7 % (40.0-76.0); PLATELET 327 x1000/uL (130-400); RED BLOOD CELL COUNT 4.29 mill/uL (4.7-6.1); RED CELL DISTRIBUTION WIDTH 14.2 % (11.6-14.6)
[2022-11-03] MEDS: INSULIN LISPRO 100 UNITS/ML SUBCUT SCH ×4 (07:22→12:00)
[2022-11-03] MEDS: BLOOD SUGAR DIAGNOSTIC STRIP TEST SCH ×2 (07:23→11:15)
[2022-11-03 08:00] VITALS: BP 113/83
[2022-11-03] MEDS: METOPROLOL TARTRATE 25MG TABLET PO SCH (11:39)
[2022-11-03] MEDS: APIXABAN 5 MG TABLET PO SCH (11:39)
[2022-11-03] MEDS ORDERED: TRAZ-251 PO (11:51)
[2022-11-03] MEDS ORDERED: ATOR10TA PO (11:51)
[2022-11-03] MEDS ORDERED: METO25TA6 PO (11:51)
[2022-11-03] MEDS ORDERED: APIX5TAB PO (11:51)
[2022-11-03 13:35] VITALS: BP 113/83
[2022-11-03] MEDS: IRON SUCROSE COMPLEX 100 MG in SODIUM CHLORIDE 0.9% 100 ML IV SCH (15:15)
== END 2022-11-03 15:43 | disposition home or self-care (01) | DRG 69 ==
PROVIDERS: ADMIT Physical Medicine & Rehabilitation Spinal Cord Injury Medicine; ATTEND Internal Medicine Nephrology
DX: G45.9 Transient cerebral ischemic attack, unspecified (principal); A41.9 Sepsis, unspecified organism; G82.50 Quadriplegia, unspecified; E46 Unspecified protein-calorie malnutrition; E87.1 Hypo-osmolality and hyponatremia; G99.2 Myelopathy in diseases classified elsewhere; I48.20 Chronic atrial fibrillation, unspecified; I69.351 Hemiplegia and hemiparesis following cerebral infarction affecting right dominant side; N39.0 Urinary tract infection, site not specified; D50.9 Iron deficiency anemia, unspecified; E11.42 Type 2 diabetes mellitus with diabetic polyneuropathy; E11.65 Type 2 diabetes mellitus with hyperglycemia; E78.00 Pure hypercholesterolemia, unspecified; F43.21 Adjustment disorder with depressed mood; D63.8 Anemia in other chronic diseases classified elsewhere; F32.9 Major depressive disorder, single episode, unspecified; G89.29 Other chronic pain; I10 Essential (primary) hypertension; G47.00 Insomnia, unspecified; Z20.822 Contact with and (suspected) exposure to COVID-19; R26.89 Other abnormalities of gait and mobility; M54.50 Low back pain, unspecified; I25.10 Atherosclerotic heart disease of native coronary artery without angina pectoris; I48.0 Paroxysmal atrial fibrillation; M48.02 Spinal stenosis, cervical region; Z63.4 Disappearance and death of family member; Z79.01 Long term (current) use of anticoagulants; Z79.4 Long term (current) use of insulin; Z82.1 Family history of blindness and visual loss; Z83.3 Family history of diabetes mellitus; Z91.81 History of falling; Z99.3 Dependence on wheelchair; Z79.899 Other long term (current) drug therapy; Z68.29 Body mass index [BMI] 29.0-29.9, adult
CPT/HCPCS: 36415; 70544; 70553; 71045; 72141; 80048; 80053; 80061; 81003; 82043; 82533; 82570; 82607; 82728; 82746; 82962; 83036; 83540; 83550; 83735; 84134; 84153; 84439; 84443; 85025; 86850; 86900; 87426; 92523; 92610; 93005; 93306; 93880; 93970; 97110; 97112; 97116; 97150; 97162; 97166; 97530; 97535; 97542; J0696; J1815; J7050; J7060; G0103